=== PATIENT | female | born 1975 | race Caucasian/White ===

== ENCOUNTER 2017-01-26 16:50 | Emergency (ER) | payer SELFPAY ==
[~2017-01-26] VITALS: Wt 71.2 kg
[~2017-01-26 16:50] MED LIST: AUGMENTIN XR 101 TER PO; CARBATROL200 MG PO; CLARITIN10 MG PO; MOTRIN800 MG PO
[2017-01-26] MEDS ORDERED: MEDROL DOSEPAK4 MG PO (17:30)
[2017-01-26] MEDS ORDERED: CYCLOBENZAPRINE10 MG PO (17:30)
[2017-01-26] MEDS ORDERED: NAPROSYN500 MG PO (17:30)
== END 2017-01-26 17:06 | disposition home or self-care (01) ==
LOC: ED 16:50
DX: S46.912A Strain of unspecified muscle, fascia and tendon at shoulder and upper arm level, left arm, initial encounter (principal); F17.200 Nicotine dependence, unspecified, uncomplicated; Z88.1 Allergy status to other antibiotic agents; X58.XXXA Exposure to other specified factors, initial encounter; Y93.89 Activity, other specified; Y92.89 Other specified places as the place of occurrence of the external cause; Y99.9 Unspecified external cause status